=== PATIENT | female | born 1960 | race Hispanic/Latino ===

== ENCOUNTER → 2023-10-06 | Outpatient (CLI) | payer OTHER | END | disposition home or self-care (01) | LOC: RAH 10:22 | PROVIDERS: ATTEND Internal Medicine Hematology & Oncology | DX: R10.12 Left upper quadrant pain (principal); D69.6 Thrombocytopenia, unspecified; D69.3 Immune thrombocytopenic purpura | CPT/HCPCS: 76700 ==

== ENCOUNTER → 2024-02-22 | Outpatient (CLI) | payer OTHER | END | disposition home or self-care (01) | LOC: RAH 09:03 | PROVIDERS: ATTEND Surgery | DX: K21.9 Gastro-esophageal reflux disease without esophagitis (principal); K44.9 Diaphragmatic hernia without obstruction or gangrene | CPT/HCPCS: 74240 ==

== ENCOUNTER 2024-03-02 05:51 | Day surgery (SDC) | payer OTHER ==
[~2024-03-02] VITALS: Ht 157.5 cm; Wt 80.7 kg
[2024-03-02 06:25] VITALS: BP 160/93; PULSE 74; RESP 16
[2024-03-02] MEDS: 0.9%NACL 1000ML 1,000 ML IV ONE (06:40)
[2024-03-02] MEDS ORDERED: FERR-63 PO (07:02)
[2024-03-02] MEDS ORDERED: HYDR-3830 PO (07:02)
[2024-03-02] MEDS ORDERED: PANT40TA54 PO (07:02)
[2024-03-02] MEDS ORDERED: INSU100V12 SQ (07:02)
[2024-03-02] MEDS ORDERED: GABA300C PO (07:02)
[2024-03-02] MEDS ORDERED: DICY10CA2 PO (07:02)
[2024-03-02] MEDS ORDERED: AMLO-257 PO (07:02)
[2024-03-02] MEDS ORDERED: FOLI1 PO (07:02)
[2024-03-02] MEDS ORDERED: ELTR50TA PO (07:02)
[2024-03-02] MEDS ORDERED: METF-444 PO (07:02)
[2024-03-02] MEDS ORDERED: LOSA100T59 PO (07:02)
[2024-03-02] MEDS ORDERED: MIDAZOLAM HCL 1 MG/ML 2ML VIAL ONE (07:13)
[2024-03-02] MEDS ORDERED: FENTANYL CITRATE PF 50 MCG/1 ML 2ML VIAL ONE (07:13)
[2024-03-02] MEDS ORDERED: PROPOFOL 10 MG/ML 20ML VIAL IV ONE ×2 (07:14)
[2024-03-02] MEDS ORDERED: LIDOCAINE PF 100MG/5ML (2%) SYRINGE 5ML ONE (07:14)
[2024-03-02] MEDS ORDERED: PHENYLEPHRINE HCL 10 MG/ML 1ML VIAL IV ONE (07:17)
== END 2024-03-02 09:20 | disposition home or self-care (01) ==
LOC: DAH 05:51
PROVIDERS: ATTEND Surgery
DX: K30 Functional dyspepsia (principal); K44.9 Diaphragmatic hernia without obstruction or gangrene; K31.89 Other diseases of stomach and duodenum; K22.89 Other specified disease of esophagus; K31.7 Polyp of stomach and duodenum; K21.9 Gastro-esophageal reflux disease without esophagitis; K29.30 Chronic superficial gastritis without bleeding; K31.819 Angiodysplasia of stomach and duodenum without bleeding; K74.69 Other cirrhosis of liver; I85.10 Secondary esophageal varices without bleeding; K64.9 Unspecified hemorrhoids; D64.9 Anemia, unspecified; I10 Essential (primary) hypertension; E66.01 Morbid (severe) obesity due to excess calories; E11.9 Type 2 diabetes mellitus without complications; M19.90 Unspecified osteoarthritis, unspecified site; Z90.710 Acquired absence of both cervix and uterus; Z90.49 Acquired absence of other specified parts of digestive tract; Z79.84 Long term (current) use of oral hypoglycemic drugs; Z79.899 Other long term (current) drug therapy; Z98.890 Other specified postprocedural states; Z83.3 Family history of diabetes mellitus; Z68.33 Body mass index [BMI] 33.0-33.9, adult
CPT/HCPCS: 43251; 43239; 82948; J3010; J7030; J2001; J2250; J2704; J2371; A4620; A4215 ×2; A4223; A4222; A4221; A4663; A4606; J3490

== ENCOUNTER 2024-05-25 10:21 | Observation (INO) | payer OTHER ==
[2024-05-22 13:40] LABS: BASOPHILS # (AUTO) 0.01 K/uL (0.00-0.20); BASOPHILS % (AUTO) 0.2 % (0.0-5.0); EOSINOPHILS # (AUTO) 0.14 K/uL (0.00-0.70); EOSINOPHILS % (AUTO) 2.9 % (0.0-8.0); HEMATOCRIT 33.2 % (36-48); IMMATURE GRANULOCYTE ABSOLUTE 0.02 K/uL (0-1); LYMPHOCYTES # (AUTO) 0.8 K/uL (1.0-4.8); LYMPHOCYTES % (AUTO) 16.8 % (21.0-51.0); MEAN CORPUSCULAR HEMOGLOBIN 28.8 pg (27.0-33.0); MEAN CORPUSCULAR VOLUME 92.7 fL (79-99); MONOCYTES # (AUTO) 0.2 K/uL (0.1-1.0); MONOCYTES % (AUTO) 4.8 % (3.0-13.0); NEUTROPHILS # (AUTO) 3.6 K/uL (1.8-7.7); NEUTROPHILS % (AUTO) 74.9 % (40.0-77.0); PLATELET COUNT (AUTO) 152 K/uL (130-400); RED BLOOD CELL COUNT(AUTO) 3.58 MIL/uL (4.00-5.50); WHITE BLOOD COUNT (AUTO) 4.8 K/uL (4.8-10.8)
[2024-05-22 13:52] LABS: CREATININE 0.9 mg/dL (0.5-1.0); POTASSIUM 3.9 mmol/L (3.5-5.1)
[2024-05-22 15:07] VITALS: BP 177/74; PULSE 86; RESP 17
[~2024-05-25] VITALS: Ht 160 cm; Wt 81.8 kg
[2024-05-25] VITALS (24 sets, daily range): BP systolic 114–150; BP diastolic 50–68; PULSE 76–95; RESP 13–16; TEMP 97.6–98; O2SAT 97
[~2024-05-25 10:21] MED LIST: AMLO-257 PO; ELTR50TA PO; FERR-63 PO; FOLI1 PO; GABA300C PO; INSU100V12 SQ; LOSA100T59 PO; METF-444 PO; PANT40TA54 PO; SUCR1TAB2 PO
[2024-05-25] MEDS: 0.9%NACL 1000ML 1,000 ML IV ONE (12:27)
[2024-05-25] MEDS: ceFAZolin SODIUM 2 GM VIAL ONE (12:27)
[2024-05-25 14:31] LABS: INR 1.23 (0.85-1.15); PROTHROMBIN TIME 13.1 SEC (9.6-11.6)
[2024-05-25 14:33] LABS: PARTIAL THROMBOPLASTIN TIME 28.8 SEC (26.3-35.5)
[2024-05-25] MEDS ORDERED: dexaMETHasone SOD PHOSPHATE 10MG/ML 1ML VIAL ONE (15:22)
[2024-05-25] MEDS ORDERED: LIDOCAINE PF 100MG/5ML (2%) SYRINGE 5ML ONE (15:22)
[2024-05-25] MEDS ORDERED: GLYCOPYRROLATE 0.2 MG/ML 5 ML VIAL ONE (15:23)
[2024-05-25] MEDS ORDERED: rocuRONium bROMide 10MG/1ML 5ML VL ONE ×2 (15:23→17:04)
[2024-05-25] MEDS ORDERED: MIDAZOLAM HCL 1 MG/ML 2ML VIAL ONE (15:23)
[2024-05-25] MEDS ORDERED: proPOFol 10 MG/ML 20ML VIAL IV ONE (15:23)
[2024-05-25] MEDS ORDERED: ondanSETRON 4MG INJ ONE (15:23)
[2024-05-25] MEDS ORDERED: NEOSTIGMINE METHYLSULFATE 1MG/ML IV ONE (15:23)
[2024-05-25] MEDS ORDERED: SUCCINYLCHOLINE CHLORIDE 20 MG/ML 10 ML VIAL ONE (15:23)
[2024-05-25] MEDS ORDERED: FENTanyl CITRate PF 50 MCG/1 ML 5ML AMP IV ONE (15:24)
[2024-05-25] MEDS ORDERED: BUPIvacaine/PF 0.25% 30ML VIAL IJ ONE (15:49)
[2024-05-25] MEDS: ceFAZolin SODIUM 2 GM VIAL IVPB ONE (16:00)
[2024-05-25] MEDS ORDERED: ALBUMIN (HUMAN) 5% 250 ML IV ONE (17:28)
[2024-05-25] MEDS ORDERED: ondanSETRON 4MG INJ IVP PRN (18:30)
[2024-05-25] MEDS ORDERED: HYDROcodone/APAP 5/325 1 TAB TABLET PO PRN (18:30)
[2024-05-25] MEDS ORDERED: INSULIN humuLIN R 100 UNIT/ML 3ML SQ PRN (18:30)
[2024-05-25] MEDS ORDERED: acetaMINOPHEN 325 MG TAB PO PRN (18:30)
[2024-05-25] MEDS: FAMOTIDINE 20MG VIAL IV SCH (21:20)
[2024-05-25] MEDS: HEParin 5,000 UNIT VIAL SQ SCH (21:27)
[2024-05-25] MEDS: D5W-1/2 NS/20MEQ KCL 1,000 ML IV SCH (22:48)
[2024-05-26] VITALS (7 sets, daily range): BP systolic 119–131; BP diastolic 51–68; PULSE 73–99; RESP 16–20; TEMP 98.1–98.5; O2SAT 97
[2024-05-26] MEDS ORDERED: HYDROcodone/acetaMINOPHEN 10/325 MG TAB PO PRN (03:30)
[2024-05-26] MEDS ORDERED: ceFAZolin SODIUM 1 GM VIAL IVPB SCH (03:30)
[2024-05-26] MEDS ORDERED: HYDROcodone/APAP 5/325 1 TAB TABLET PO PRN (03:30)
[2024-05-26] MEDS: HYDROcodone/APAP 5/325 1 TAB TABLET PO PRN (03:56)
[2024-05-26] MEDS ORDERED: GLUCAGON 1MG KIT 1 MG ML IM PRN (08:00)
[2024-05-26] MEDS ORDERED: PoTASSium chloRIDE 20MEQ/100ML 100 ML IV PRN (08:00)
[2024-05-26] MEDS ORDERED: PoTASSium chl 10% ELIXIR 20MEQ 20 MEQ/15 ML UDCUP PO PRN (08:00)
[2024-05-26] MEDS ORDERED: MAGNESIUM 2GM PREMIX 50ML 50 ML IV PRN (08:00)
[2024-05-26] MEDS ORDERED: DEXTROSE 50%-WATER 50 ML DISP.SYRIN IV PRN (08:00)
[2024-05-26] MEDS ORDERED: PoTASSium chloRIDE 20MEQ ER 20 MEQ ERTAB PO PRN (08:00)
[2024-05-26] MEDS: LoSARTan 100 MG TABLET PO SCH (08:56)
[2024-05-26] MEDS: SUCRALFATE 1 GM TABLET PO SCH (08:56)
[2024-05-26] MEDS: FOLic ACID 1 MG TABLET PO SCH (08:57)
[2024-05-26] MEDS: PANTOPrazole 40 MG TAB DR PO SCH (08:57)
[2024-05-26] MEDS: FERROUS SULFATE 325 MG TABLET.DR PO SCH (08:59)
[2024-05-26] MEDS ORDERED: GABAPENTIN 300 MG CAPSULE PO SCH ×2 (09:00→14:00)
[2024-05-26] MEDS ORDERED: INSULIN GLARgine 100 UNITS/ML 10 ML VIAL SQ SCH (09:00)
[2024-05-26 09:05] LABS: HEMATOCRIT 31.2 % (36-48); MEAN CORPUSCULAR HEMOGLOBIN 28.7 pg (27.0-33.0); MEAN CORPUSCULAR HGB CONC 31.4 g/dL (32.0-36.0); MEAN CORPUSCULAR VOLUME 91.5 fL (79-99); RED BLOOD CELL COUNT(AUTO) 3.41 MIL/uL (4.00-5.50); RED CELL DISTRIBUTION WIDTH 14.8 % (11.0-15.5); WHITE BLOOD COUNT (AUTO) 5.7 K/uL (4.8-10.8)
[2024-05-26 09:13] LABS: POTASSIUM 4.4 mmol/L (3.5-5.1)
[2024-05-26 09:25] LABS: HEMOGLOBIN A1C 7.2 % (4.0-6.0)
[2024-05-26] MEDS ORDERED: INSULIN humuLIN R 100 UNIT/ML 3ML SQ SCH (11:30)
[2024-05-26] MEDS ORDERED: HEParin 5,000 UNIT VIAL SQ SCH (14:00)
[2024-05-26] MEDS: SIMETHICONE 80 MG TAB.CHEW PO SCH (14:04)
[2024-05-27] MEDS ORDERED: amLODIPine 5 MG TAB PO SCH (08:00)
== END 2024-05-26 17:05 | disposition home or self-care (01) ==
LOC: DAH 10:21 → INTOOBSV 10:22 → DAHIP 10:22 → DAH 10:22 → 4CH 19:50
PROVIDERS: ADMIT Surgery; ATTEND Surgery
DX: K44.9 Diaphragmatic hernia without obstruction or gangrene (principal); K43.9 Ventral hernia without obstruction or gangrene; K74.60 Unspecified cirrhosis of liver; K21.00 Gastro-esophageal reflux disease with esophagitis, without bleeding; D64.9 Anemia, unspecified; E11.40 Type 2 diabetes mellitus with diabetic neuropathy, unspecified; I10 Essential (primary) hypertension; K21.9 Gastro-esophageal reflux disease without esophagitis; R18.8 Other ascites; Z90.710 Acquired absence of both cervix and uterus; Z79.899 Other long term (current) drug therapy; Z98.890 Other specified postprocedural states
CPT/HCPCS: 80048 ×2; 85025; 86850 ×2; 86900 ×2; 86901 ×2; 36415 ×3; 93005; 43210; 96374; 96372; 85610; 85730; 82948 ×2; 96376; 83036; 85027; 97161; 97116; A6260; A4663; A4215 ×2; P9045; J3490 ×5; J3010; J1100; J0330; J7030; J0665 ×2; J2001; J2250; J2704; J2405; J2710; J1644; J0690 ×2; A4930 ×2; A4223 ×2; A4222; A4221; A4216; A4600; G0378 ×5; G8980; G8983; L0625; 43235